=== PATIENT | male | born 1940 | race Two or more races ===

== ENCOUNTER 2022-08-18 17:32 | Emergency (ER) | payer OTHER ==
[~2022-08-18] VITALS: Ht 167.6 cm; Wt 93.0 kg
[2022-08-18] MEDS ORDERED: COZAAR100 MG PO (17:45)
[2022-08-18] MEDS ORDERED: FARXIGA10 MG PO (17:45)
[2022-08-18] MEDS ORDERED: FENOFIBRATE150 MG (17:45)
[2022-08-18] MEDS ORDERED: ZOCOR40 MG PO (17:45)
[2022-08-18] MEDS ORDERED: TAMS0.4C PO (17:46)
== END 2022-08-18 21:24 | disposition home or self-care (01) ==
LOC: ER 17:32
DX: S00.93XA Contusion of unspecified part of head, initial encounter (principal); S30.0XXA Contusion of lower back and pelvis, initial encounter; W08.XXXA Fall from other furniture, initial encounter; Y93.89 Activity, other specified; Y92.89 Other specified places as the place of occurrence of the external cause; Y99.9 Unspecified external cause status; I10 Essential (primary) hypertension; M54.89 Other dorsalgia